=== PATIENT | female | born 1945 | race Caucasian/White ===

== ENCOUNTER 2019-11-08 21:10 | Inpatient (IN) | payer MEDICARE ==
[~2019-11-08] VITALS: Ht 170.2 cm; Wt 68.0 kg
[2019-11-08 23:20] VITALS: BP 113/77
--- NOTE | 2019-11-08 23:20 | NUR ---
SANDY,DELL Casanova a 74 year old F admitted via stretcher from the ADMITTING as a voluntary admission. Arrived on unit at 2320. ALLERGIES: NKA. Vital signs are: 98.5-100-18 113/77. The client's POA,Mariano Matthews,gave verbal consent for the following forms with stated understanding: Authorization For The Release of Medical Information,Consent to Voluntary Admission and Hospitalization, Consent and Release Forms/Receipt of Rights, Acknowledgement of Advance Directive Information, Behavioral Health Consent Form. Admitted under the services of Dr. CLARA GARCESMARYCHUY. A search was conducted and hazardous articles were removed. Client was oriented to the unit. JOHANA ARREAGA
--- NOTE | 2019-11-09 01:30 | NUR ---
Dr. Reich was called and notified of admission to floor and patient not having any wounds. No new orders were received. Dr. Reich said to place medical management under Dr. Kent's services.
[2019-11-09] MEDS ORDERED: MIRTAZAPINE15 M2 PO (01:59)
[2019-11-09] MEDS ORDERED: COGENTIN0.5 MG PO (02:01)
[2019-11-09] MEDS ORDERED: LAMICTAL100 MG PO (02:02)
[2019-11-09] MEDS ORDERED: PRAVACHOL20 MG PO (02:02)
[2019-11-09] MEDS ORDERED: CALAN SR120 MG PO (02:04)
[2019-11-09] MEDS ORDERED: NAMENDA10 MG PO (02:04)
[2019-11-09] MEDS ORDERED: ZESTORETIC 10-1 EACH PO (02:05)
[2019-11-09] MEDS ORDERED: DONEPEZIL HYDROC5 MG PO (02:05)
[2019-11-09] MEDS ORDERED: RISPERIDONE1 MG PO (02:05)
--- NOTE | 2019-11-09 03:45 | NUR ---
Patient pacing,tearful,attempting to write on wall in room with her pointer finger,having non-sensical rambling speech noted. Attempted to redirect back to bed but patient unable to sit still. Continues to pace. All non-pharmacological interventions unsuccessful. Patient requested "could I have something to calm my nerves,please." Will plan to given Ativan as per request of patient.
--- NOTE | 2019-11-09 04:09 | NUR ---
Medicated with Ativan po prn for increased anxiety/agitation as per doctor's order and request of patient. Will monitor patient's mood/behavior.
--- NOTE | 2019-11-09 05:32 | NUR ---
Pt restless with repeatative behaviors noted, pacing, obsession with water noted. Asking for multiple cups stating she is thirsty, once given cup she will take 1-2 sips and then request another glass. She continues to attempt to go to sink to turn it on and off. Flushing toilets over and over again. Pt rambles with speech pattern. Pt rubbing temples with hands, frustrated with word finding. continue to provide comfort and redirection.
--- NOTE | 2019-11-09 05:48 | NUR ---
Patient slept approx. 0.5 hours throughout shift and was up pacing and very restless. Q 15 minute safety checks continued and maintained.
[2019-11-09 06:50] LABS: ALKALINE PHOSPHATASE 57 U/L (45-117); BUN 18 mg/dl (7-24); CHLORIDE 110 mmol/L (98-107); CHOLESTEROL 168 mg/dL (<200); CREATININE 0.97 mg/dL (0.55-1.02); HDL CHOLESTEROL 53 mg/dl (40-60); LDL CHOLESTEROL 73 mg/dL (9-159); SGOT/AST 35 IU/L (3-35); SGPT/ALT 44 U/L (12-78); SODIUM 141 mmol/L (136-145); TOTAL PROTEIN 7.1 gm/dL (6.4-8.2); TRIGLYCERIDES 209 mg/dl (<150); VLDL CHOLESTEROL 42 mg/dL (6-40)
[2019-11-09 06:54] LABS: BASO % 0.4 % (0.0-1.0); EOS # 0.2 10*3/uL (0.0-0.4); EOS % 1.8 % (1.0-4.0); HEMATOCRIT 41.4 % (37.0-47.0); HEMOGLOBIN 13.8 g/dl (12.0-16.0); LYMPH # 2.1 10*3/uL (1.3-4.4); LYMPH % 22.1 % (27.0-41.0); MEAN CELL VOLUME 91.2 fl (81.0-99.0); MEAN CORPUSCULAR HGB 30.4 pg (27.0-31.0); MEAN CORPUSCULAR HGB CONC 33.3 g/dl (33.0-37.0); MEAN PLATELET VOLUME 9.9 fl (9.6-12.3); MONO % 10.4 % (3.0-9.0); NEUT # 6.1 10*3/uL (2.3-7.9); PLATELET COUNT AUTOMATED 297 10*3/uL (130-400); RED BLOOD COUNT 4.54 10*6/uL (4.10-5.10); RED CELL DISTRI WIDTH 13.8 % (0-14.5); WHITE BLOOD COUNT 9.3 10*3/uL (4.8-10.8)
--- NOTE | 2019-11-09 07:03 | NUR ---
Medicated with Tylenol po prn for c/o hip pain. Will monitor effectiveness.
[2019-11-09 07:32] VITALS: BP 117/58
--- NOTE | 2019-11-09 08:30 | NUR ---
P: INCREASED PACING, WANDERING, BIZARRE BEHAVIOR DURING BREAKFAST. PATIENT TOOK BREAKFAST FOOD OFF TRAY AND PLACED EACH ITEM ON THE TABLE, SCATTERED. VIOCED TANGENTILE THOUGHTS WITH FLIGHT OF IDEAS. NON SENSICAL FRAGMENTED STATEMENTS WH INTERACTING. PATIENT ABLE TO RESPOND TO SIMPLE QUESTIONS ONLY. I: ONE ON ONE, REDIRECTION, REORIENTATION, ACTIVITIES PROVIDED R: INEFFECTIVE. PATIENT IS ALERT TO PERSON WITH CONFUSION; RECALLED BEING IN [facility] AND October. LONG/SHORT TERM MEMORY DEFICITS. DENIES ANY HALLUCINATIONS, DELUSIONS, HI/SI OR PAIN. MOOD IS ANXIOUS, HOPELESS/HELPLESS. PATIENT HEARS OTHERS CONVERSATION, JUMPS TO THE SUBJECT/TOPIC AND CONFABULATES. MEDICATION COMPLAINT. Q 15 MINUTE SAFETY CHECKS MAINTAINED. ONE PERSON ASSIST WITH (VERBAL CUEING AND SIMPLE DIRECTION) ACTIVITIES OF DAILY LIVING, CONTINENT OF BOWEL AND BLADDER. SET UP FOR MEALS, INTAKE VARY. P: CONTINUE TO MOOD, INCREASED CONFUSION, APPETITE AND SLEEPING PATTERN. PROVIDE ONE ON ONE, REDIRECTION/ORIENTATION, ACTIVITIES NEEDED.
--- NOTE | 2019-11-09 08:30 | NUR ---
TREATMENT PLAN MEETING WAS HELD WITH DR. ELIZABETH, GURPREET LOWE RN, WAVE SOLDER OFFBEARER-S AND TATTOO DESIGNER. PLAN FOR DISCHARGE NEXT WEEK. PT. WILL RETURN HOME.
--- NOTE | 2019-11-09 08:37 | NUR ---
Patient pacing t/o unit. Respirations easy and regular. Vital signs stable. No overt distress. Jannet Collier CNP, made aware of medical medications needing reconciled. states "ok". YARY ABREU
--- NOTE | 2019-11-09 11:58 | NUR ---
Patient is pleasant with this clinical writer but visibly anxious. Pt is nonsensical in speech and is voicing flight of ideas. Pt will hear a word spoken by another and use that word as a focus for pt's statements. This clinical writer spoke with pt's Mariano and obtained additional pt information.
[2019-11-09 20:00] VITALS: BP 112/60
--- NOTE | 2019-11-09 21:11 | NUR ---
Patient alert to person only. Mood anxious. Patient pacing in room. Rambling nonsensical speech noted. Patient having trouble with word finding and saying fragmented sentences. Patient having auditory and visual hallucinations. Patient saying " I know I need to shut up because he just told me to shut up". When nurse asked patient who told her to shut up,patient said "he did" and pointed beside her. No one else in room except patient and this nurse. Patient compliant with HS medications without any difficulty. Patient continuously flushing toilet and going to door in room and slamming door shut. Redirected patient to not continuously flushing toilet and slamming door. Patient said "I know and I won't do it. I am not psychotic I just want someone to listen to me. Can you do that?" This nurse asked patient to tell this nurse what she wanted to talk about. Patient rubbing her temples and was having trouble finding words. Redirected and reoriented patient back to room and patient sitting on bed. Provided 1:1 for emotional support. Plan to continue to encourage medication compliance. Also continue to provide emotional support and to continue to redirect/reorient when needed/appropriate. Will continue to monitor behaviors/moods. Q 15 minute safety checks continued and maintained. See [facility] flowsheet for further documentation.
--- NOTE | 2019-11-09 21:42 | NUR ---
Patient continues to pace in room,roaming out in hallway,attempting to go in other rooms,and becoming more hyperverbal. Redirection unsuccessful. All non-pharmacological interventions unsuccessful. Patient requested "can I have something to calm me,please". Medicated with Ativan po prn for increased agitation/anxiety as per doctor's orders and at request of patient. Will continue to monitor moods/behaviors.
--- NOTE | 2019-11-09 23:17 | NUR ---
Patient resting quietly in bed with eyes closed and snoring. Ativan effective. Will continue to monitor moods/behaviors.
--- NOTE | 2019-11-10 00:16 | NUR ---
24 HR chart check completed.
--- NOTE | 2019-11-10 05:41 | NUR ---
Patient slept approx. 6.5 hours throughout shift. Q 15 minute safety checks continued and maintained.
[2019-11-10 07:13] VITALS: BP 135/65
--- NOTE | 2019-11-10 08:24 | NUR ---
Patient quiet in room with no c/o discomfort. Respirations easy and regular. Vital signs stable. No overt distress. YARY ABREU
--- NOTE | 2019-11-10 09:51 | NUR ---
Treatment team held with Mial Galloway COMMERCIAL ILLUSTRATOR, RN, and CHARLIE. Discharge plan is for pt to return home with her next week. Follow-up will be scheduled with Dr Chacko.
--- NOTE | 2019-11-10 10:08 | NUR ---
ELLIOTT HARO CNP ON UNIT TO ASSESS PATIENT.
--- NOTE | 2019-11-10 11:41 | NUR ---
Patient is fixated on counting and becomes irritated if her counting is interrupted. Patients counting includes sequential as well as repetitive numbers at times. Pt's speech in primarily non-sensical. This adjusto writer operator spoke with pt's Josh (Mariano) who stated that pt has not had this counting behavior before.
--- NOTE | 2019-11-10 12:27 | NUR ---
PRN ATIVAN EFFECTIVE. CALM DEMEANOR WHILE EATING LUNCH AND CONTINUING TO ENCOURAGE TO EAT MEAL.
--- NOTE | 2019-11-10 13:37 | NUR ---
P: INCREASED CONFUSION, WORD SALAD AND WORD FINDING DIFFICULTY; REPEATIVE WITH COUNTING NUMBERS UP TO 10. RAISING VOICE WITH ANGER TRYING TO GET OTHERS TO LISTEN, UNABLE TO REDIRECT. AUDITORY HALLUCINATIONS VOICED. SEEING DAUGHTER "DU; 1,2,3,4, GOING TO MISS THE BUS; DU TOLD ME..." INTRUSIVE WITH OTHER PATIENT. I:ONE ON ONE, REDIRECTION AND REORIENTATION PROVIDED, CHANGE OF ENVIRONMENT, OFFERED ACTIVITIES. R: INEFFECTIVE. PATIENT IS ALERT TO SELF WITH CONFUSION. ABLE TO VOICE NEEDS AT TIMES. LONG/SHORT TERM MEMORY DEFICITS. MOOD IS IRRITABLE, ANXIOUS; INTRUSIVE, RAISING VOICE; NOT ABLE TO FOLLOW DIRECTION. NO VOICED STATEMENTS OF HI/SI OR PAIN. RESPONDING TO INTERNAL STIMULI. MEDICAITON COMPLAINT. Q 15 MINUTE SAFETY CHECKS MAINATINED. 1 PERSON ASSIST WITH ACTIVITIES OF DIALY LIVING, CONTINENT OF BOWEL AND BLADDER. ASSIST WTIH MEALS AND MUCH ENCOURAGEMENT AND ASSIST WITH TO EAT. INTERACTIVE WITH NURSE WITH MUCH VERBAL CUEING. P: PRN ATIVAN 1MG PO GIVEN FOR INCREASED RESTLESSNESS.
[2019-11-10 13:51] LABS: VITAMIN D, 25-HYDROXY 40.5 ng/mL (30-100)
--- NOTE | 2019-11-10 16:20 | NUR ---
Shift chart check completed.
--- NOTE | 2019-11-10 17:11 | NUR ---
PATIENT COMPLAINING OF HAVING A UPSET STOMACH. SALTINE CRACKERS AND GINGERALE PROVIDED. PRN MAALOX 30ML GIVEN PO AT THIS TIME.
--- NOTE | 2019-11-10 17:24 | NUR ---
PATIENT COMPLAINING OF BACK PAIN 05/21. PRN TYLENOL 650MG GIVEN PO AT THIS TIME.
--- NOTE | 2019-11-10 18:30 | NUR ---
NO FURTHER COMPLAINTS, IN DINING ROOM SITTING IN CHAIR. PRN MAALOX AND TYLENOL EFFECTIVE.
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
[2019-11-10 20:00] VITALS: BP 129/63
--- NOTE | 2019-11-10 21:24 | NUR ---
Patient is now sitting still for longer periods and continues to fold wash cloths and towels. Continuous counting has lessened slightly. Will continue to monitor moods/behaviors.
--- NOTE | 2019-11-10 21:51 | NUR ---
Patient alert to person only. Mood anxious. Patient pacing in room but sitting down for longer periods of time now. Rambling nonsensical speech noted. Patient having trouble with word finding and saying fragmented sentences. Patient having auditory and visual hallucinations. Patient looking to the empty chair next to patient and saying "Sejal, tell her". When nurse asked patient tell the nurse what. Patient said "that is what happens when you or anybody else doesn't listen to me". Patient compliant with HS medications without any difficulty. Patient rubbing her temples and was having trouble finding words. Provided 1:1 for emotional support. Plan to continue to encourage medication compliance. Also continue to provide emotional support and to continue to redirect/reorient when needed/appropriate. Will continue to monitor behaviors/moods. Q 15 minute safety checks continued and maintained. See [facility] flowsheet for further documentation.
[2019-11-10 22:51] LABS: BILIRUBIN NEGATIVE (NEGATIVE); BLOOD NEGATIVE (NEGATIVE); CLARITY SL CLOUDY (CLEAR); COLOR YELLOW (YELLOW); GLUCOSE NEGATIVE (NEGATIVE); KETONE TRACE (NEGATIVE); NITRITE NEGATIVE (NEGATIVE); UROBILINOGEN 0.2 E.U./dl (0.2-1.0)
[2019-11-10 22:52] LABS: LEUKO ESTERASE 1+ (NEGATIVE)
[2019-11-10 22:59] LABS: BACTERIA 3+; EPITHELIAL CELLS TNTC; RBC 31-40 rbc/hpf (0-2); WBC TNTC wbc/hpf (0-5)
--- NOTE | 2019-11-11 | NUR ---
Patient repeatedly setting off bed alarm and pacing in room and hallway. Attempted to redirect patient multiple times but unsuccessful. Placed patient in gerichair for 1:1 for safety. Patient in front of nurses' station for close observation. Will continue to monitor moods/behaviors.
--- NOTE | 2019-11-11 00:04 | NUR ---
Called and notified Dr. Pritchard regarding urinanalysis results. No new orders received at this time.
--- NOTE | 2019-11-11 00:07 | NUR ---
24 HR chart check completed.
--- NOTE | 2019-11-11 06:03 | NUR ---
Patient slept approx. 1 hour and was very restless throughout shift. Q 15 minute safety check continued and maintained.
--- NOTE | 2019-11-11 06:35 | NUR ---
Attempted to assist patient out of gerichair in order to assist with toileting. Patient said " I will go to the bathroom later, I want to just sit in this chair for now". This nurse told patient that she really should try to go to the bathroom because the the last time she went was before bedtime. And also she would get to have time to freshen up and get rid of the odor before breakfast. Patient said "too bad,hold your nose if you can't handle the smell". Patient remains seated in gerichair with body alarm on and across from nurses' desk where she can be closely observed for safety. Will continue to monitor moods/behaviors.
[2019-11-11 07:36] VITALS: BP 122/62
--- NOTE | 2019-11-11 07:51 | NUR ---
Patient feeding self breakfast at this time. Respirations easy and regular. Vital signs stable. No overt distress. Update given to Lashell PHINP-. ALYSSA BELLO
--- NOTE | 2019-11-11 08:30 | NUR ---
TREATMENT PLAN MEETING WAS HELD WITH GURPREET LOWE RN, FURNITURE SALES CONSULTANT-S AND GEOPHYSICAL E LOGGER. PLAN FOR DISCHARGE NEXT WEEK. PT. WILL RETURN HOME WITH HER .
--- NOTE | 2019-11-11 09:24 | NUR ---
Nina HARVESTING SUPERVISOR updated re: urinalysis result and pt reports occasional dysuria.
--- NOTE | 2019-11-11 11:30 | NUR ---
This RN and second RN attempted several times to engage pt in morning group activity, pt restless, moving from chair to chair in the dining room, frequently repeated random numbers, talking to unseen others, speech nonsensical at times. Pt eventually went and laid down in bed.
--- NOTE | 2019-11-11 12:30 | NUR ---
This RN to pt's room, advised pt lunch was on unit, pt declined to come out for lunch at this time, pt states "I'll eat later". Pt's lunch tray saved for when pt is ready to eat. Pt rested quielty with eyes closed for approx 30 minutes. Pt is now awake but remains lying in bed per pt preference. q15 min monitoring continues.
--- NOTE | 2019-11-11 13:10 | NUR ---
Patient restless this AM moving about in activity room. Unable to engage pt in group activity. Pt did tap this verse writer on the shoulder two different times and then pt stated. "One." Pt's sentences are nonsensical. She was speaking often of Nora (her daughter's name). Pt displayed slight irritation briefly at times.
--- NOTE | 2019-11-11 15:50 | NUR ---
P- Confusion, restlessness, auditory/visual/tactile hallucinations, counting frequently, nonsensical speech, labile mood, poor po intake for breakfast and lunch I- Orientation, mood and behaviors assessed. Assessed pt for s/s hallucinations, paranoia and/or delusions. Medications administered as per physician's orders. Assistance with ADL care provided as needed. Encouraged pt to attend and participate in uv milieu groups and activities. R- Pt is alert and oriented to person, place, year and president this AM. Confusion noted. Resps easy and even on room air. Mood labile, affect varying t/o shift. This AM pt appeared overwhelmingly depressed and tearful, sobbing, stating she believed her had and she needed to get to the home. Reality presentation given and emotional support provided. Offered to call pt's so they could talk to which pt declined. Pt noted at times t/o shift with increased anxiety and irritable at times toward female peer. Speech is soft, nonsensical at times. Speech is repetitive at times, pt counting "1,2,3,4" frequently. This RN and pt were sitting in quiet room talking when pt suddenly pointed across the room and began pointing and counting "1, 2, 3, 4" as if she were counting something across the room. This RN asked pt what she saw that she was counting. Pt became agitated and stated "can't you see that 'unintelligible word' over there?" This RN asked pt to repeat what she had said as to better understand her. Pt again repeated the same unintelligible word and then states "No, the couch". Assured pt this RN could also see the couch. Pt also frequently asking outloud "Can you give me a 7? Can anyone give me a number 7?" Pt noted to be responding to apparent auditory, visual and tactile internal stimuli. Pt observed carrying on conversations with unseen others, pt seems to frequently be interacting with daughter Sejal. Pt also noted to be gesturing into the air, knocking on chairs, the doorways and george as well as 'writing' with her fingertips on the george and her pant legs. Pt observed 'writing' out her daughter's name "Sejal" and then crossing it out as well as making hash atkins. Pt refused lunch despite multiple attempts and encouragement. Pt states "I need a wheelchair, I have a bad back". Offered pt Tylenol, encouraged pt to sit and rest on couch, chair or bed for comfort/rest period. Pt states "I can't take Tylenol. My psychiatrist told me not to". Pt denies SI/HI, intent or plan. Medication compliant with education and encouragement provided. Pt remains restless throughout the shift. No aggressive behaviors displayed. Pt has refused to shower or allow full skin assessment by this RN this shift despite encouragement/education provided. Frequent PO fluids offered/encouraged. Pt taking PO fluids well with encouragement. P- Plan to continue current treatment, continue to monitor mood and behaviors, provide appropriate reorientation, redirection and 1:1 as needed. Continue to encourage medication compliance as well as group attendance and participation.
--- NOTE | 2019-11-11 16:14 | NUR ---
Shift chart check completed.
--- NOTE | 2019-11-11 19:40 | NUR ---
Patient sitting quietly in quiet room with no c/o discomfort. Respirations easy and regular. Vital signs stable. No overt distress. YARY ABREU
[2019-11-11 20:00] VITALS: BP 125/63
--- NOTE | 2019-11-11 20:00 | NUR ---
HALLUCINATING, VISUAL AND AUDITORY. PT IS OVERTLY INTERACTING WITH HER DAUGHTER WHO IS NOT PRESENT ON THE UNIT. RESTLESS. ASSESSED FOR ORIENTATION LEVEL, MOOD AND AFFECT. ASSESSED FOR HALLUCINATIONS AND DELUSIONS. ASSESSED FOR SI, INTENT OR PLAN. ADMINISTERED MEDICATIONS PER ORDER. PRN ROZEREM GIVEN FOR RESTLESSNESS. PT IS ALERT, ORIENTED TO PERSON AND TIME. MOOD IS LABILE, AFFECT IS FLAT. PT INTERACTING WITH DAUGHTER, UNRECEPTIVE TO REALITY PRESENTATION. PT CONTINUES WITH SEQUENCING AND REPETITION OF NUMBERS. DENIES SI, INTENT OR PLAN. MEDICATION COMPLIANT WITHOUT DIFFICULTY. WILL CONTINUE TO ENCOURAGE MEDICATION COMPLIANCE. WILL ENCOURAGE PT TO VERBALIZE INTERNAL THOUGHT PROCESS. WILL ENCOURAGE RESTFUL SLEEP AND INCREASED CONSUMPTION AT MEALS AND SNACKS. Q 15 MIN MONITORING FOR SAFETY.
--- NOTE | 2019-11-11 21:30 | NUR ---
PRN ROZEREM EFFECTIVE AT THIS TIME.
--- NOTE | 2019-11-11 21:37 | NUR ---
The patient has no complaints and is resting comfortably. YARY ABREU
--- NOTE | 2019-11-12 01:18 | NUR ---
The patient has no complaints and is resting quietly. YARY ABREU
--- NOTE | 2019-11-12 06:51 | NUR ---
PT SLEPT 5 HOURS THIS SHIFT.
[2019-11-12 07:22] VITALS: BP 127/62
--- NOTE | 2019-11-12 07:29 | NUR ---
Patient resting quietly with no c/o discomfort. Respirations easy and regular. Vital signs stable. No overt distress. Encouraged pt to come out for breakfast, pt states "no I'm not eating today". This nurse asked why pt didn't want to eat, pt became angry and states "I just don't, now go away". ALYSSA BELLO
--- NOTE | 2019-11-12 08:15 | NUR ---
on unit to see pt at this time.
--- NOTE | 2019-11-12 12:00 | NUR ---
Pt continued to rest quietly in bed throughout the morning, intermittently napping. Pt recieved phone call from , pt spoke to on the phone. At conclusion of phone call lunch trays had arrived on unit, this RN encouraged pt to come out of room and eat some lunch, pt refused and is repeatedly asking for her daughter Sejal. No number for Sejal available. RN phoned and obtained Sejal's number. Pt was able to speak with Sejal on the phone. Sejal relayed to RN that pt's appetite and meal intakes had been poor at home prior to admission as well. Pt tearful regarding missing her family at conclusion of second phone call. This RN spent 1:1 time with pt, emotional support provided, feelings validated. Encouraged pt again to come to lunch. Pt did come out with much encouragement and reasurrance, pt repeatedly states "I can't do it. I can't". Set up assist provided with meal tray, pt began to feed self. Pt is currently slowly feeding self, however, pt is noted to be responding to internal stimuli at this time as pt is observed "talking on the phone" using a small piece of paper and holding it up to her ear as if it were the handheld phone reciever. No acute distress noted. Will cont to monitor.
--- NOTE | 2019-11-12 18:29 | NUR ---
P- CONFUSION, AUDITORY/VISUAL/TACTILE HALLUCINATIONS, LABILE MOOD, POOR PO INTAKES. PT VOICING DELUSIONAL THOUGHTS REGARDING BEING . PREOCCUPIED WITH HER WATER BREAKING AND ASKING "IS THE BABY OK?" I- ORIENTATION, MOOD AND BEHAVIORS ASSESSED. ASSESSED PT FOR SI/HI, INTENT OR PLAN. ASSESSED PT FOR S/S HALLUCINATIONS, PARANOIA AND/OR DELUSIONS. MEDICATIONS ADMINISTERED PER PHYSICIAN'S ORDERS. ASSISTANCE WITH ADL CARE PROVIDED NEEDED. ENCOURAGED PT TO ATTEND AND PARTICIPATE IN [facility]DR[facility] GROUPS AND ACTIVITIES. R- PT IS ALERT AND ORIENTED TO SELF, CONFUSION NOTED. RESPS EASY AND EVEN ON ROOM AIR. MOOD REMAINS LABILE, PT FLUCTUATES QUICKLY FROM CALM AND COOPERATIVE, TO TEARFUL TO IRRITABLE. SPEECH IS SOFT, NONSENSICAL AT TIMES, PT ABLE TO ANSWER SIMPLE QUESTIONS. LESS REPETITIVE SPEECH/NUMBER SEQUENCING NOTED THIS DATE IN COMPARISION TO ASSESSMENT BY THIS RN ON 11/11/2019. PT CONTINUES TO EXHIBIT EVIDENCE OF INTERNAL AUDITORY, VISUAL AND TACTILE STIMULI. PT TALKS AND INTERACTS EXTENSIVELY WITH HER SON AND DAUGHTER DESPITE THEM NOT BEING HERE ON THE UNIT. PT PICKS AND GRABS AT THINGS IN THE AIR WELL KNOCKING AND RUBBING HER HANDS ON THE GIL, TABLES AND DOORWAYS. MED COMPLIANT THIS AM WITHOUT DIFFICULTY. PT ALSO VOICING DELUSIONAL THOUGHTS THIS DATE REGARDING BEING , STATING HER WATER BROKE AND ASKING "IS THE BABY OK?" FREQUENT REDIRECTION AND REALITY PRESENTATION PROVIDED, EFFECTIVE FOR ONLY SHORT PERIODS OF TIME. PT CONTINUES WITH POOR PO INTAKES, REFUSED BREAKFAST AND DINNER, LATE 25% OF LUNCH. FLUIDS OFFERED AND ENCOURAGED T/O SHIFT. PT SHOWERED THIS EVENING BY THIS RN. SKIN INTACT. PINK AND BLANCHABLE TO BUTTOCKS. PT FREQUENTLY ASKING THIS NURSE TO "GO AWAY" BUT WAS OVERALL COMPLIANT WITH HANDS ON CARE, NO AGGRESSIVE BEHAVIORS DISPLAYED. P- PLAN TO CONTINUE CURRENT TREATMENT, CONTINUE TO MONITOR MOOD AND BEHAVIORS, PROVIDE APPROPRIATE REORIENTATION, REDIRECTION AND 1:1 NEEDED. CONTINUE TO ENCOURAGE MEDICATION COMPLIANCE WELL GROUP ATTENDANCE AND PARTICIPATION.
[2019-11-12 19:56] VITALS: BP 131/53
--- NOTE | 2019-11-12 21:03 | NUR ---
P--HALLUCINATIONS, CONFUSION, DISORIENTATION I--ASSISTED WITH TOILETING WITH DIFFICULTY. BRUSHED TEETH, MEDICATED PER DOCTORS ORDERS. DIFFICULTY GETTING CLIENT TO UNDERSTAND REQUESTS. VISUAL HALLUCINATIONS NOTED. ATTEMPTED TO REPOSITION. ENCOURAGED FLUID INTAKE. EASILY DISTRACTED. R- OH ARE YOU MY HUSBANDS MOTHER. DON'T BOTHER WITH ME GO TO SLEEP. WAIT A MINUTE THEN STARTS POINTING AT WALL AND COUNTING. TO TOILET WITH STEP BY STEP INSTRUCTIONS. PULLING ON ALARM CODE WHILE NURSE STANDING THERE. UNABLE TO WIPE IT APPEARS SHE DOESN'T UNDERSTAND. ALLOWED OUTER TEETH TO BE BRUSHED BY RN. TOOK MEDICATIONS CRUSHED WITH BIRD BITES. DRANK 1/2 CONTAINER CHOCOLATE MILK. DRAWING WITH FINGER ON SHEET BEFORE GETTING IN BED. ASKED NURSE TO HELP LEGS THEN SAID NO. POSITIONED IN BED THEN TOLD NURSE TO LET HER MOVE HERSELF AND GO AWAY. COVERED HER AND LEFT ROOM P--MONITOR FOR CHANGES IN MOOD/BEHAVIOR. MONITOR Q15 MINS AND PRN FOR SAFETY. ENCOURAGE FLUIDS. REORIENT TO PLACE AND TIME. MEDICATE PER ORDERS. PROVIDE EMOTIONAL AND PHYSICAL SUPPORT. P-
--- NOTE | 2019-11-12 23:23 | NUR ---
REMAINS AWAKE MOVING SELF AROUND IN BED. TELLS YOU TO GET OUT AND GO TO BED WHEN YOU ENTER ROOM. WILL CONTINUE TO MONITOR
--- NOTE | 2019-11-13 04:19 | NUR ---
24 HR chart check completed.
--- NOTE | 2019-11-13 06:45 | NUR ---
VISUAL HALLUCINATIONS MAJORITY OF NIGHT. CONFUSION AND DISORIENTATION. CONTINUES TO LOOK AHEAD AT UNSEEN OBJECTS, POINTING AND APPEARING TO BE COUNTING. WILL ANSWER QUESTION I AM FINE GO GET SOME REST. SLEPT LESS THAN 2 HOURS
[2019-11-13 08:00] VITALS: BP 96/72
--- NOTE | 2019-11-13 08:51 | NUR ---
ELLIOTT HARO CNP ON UNIT TO ASSESS PATIENT.
[2019-11-13 08:54] VITALS: BP 98/60
--- NOTE | 2019-11-13 09:05 | NUR ---
MANUAL BP 98/60. POOR PO INTAKES, ELLIOTT HARO, VALENTIN NOTIFIED, OKAY TO HOLD VERAPAMIL.
--- NOTE | 2019-11-13 09:13 | NUR ---
TREATMENT PLAN MEETING WAS HELD WITH DR. ELIZABETH, GURPREET LOWE RN AND TRACING LATHE SET UP OPERATOR. PLAN FOR DISCHARGE NEXT WEEK. PT. WILL RETURN HOME WITH HER .
--- NOTE | 2019-11-13 13:56 | NUR ---
P: VISUAL AND TACTILE HALLUCINATION; RUBBING TABLE BACK AND FORTH AND HANDS IN AIR RESPONDING TO INTERNAL STIMULI. POOR APPETITE. I: ONE ON ONE, REDIRECTION/ORIENTATION TO REALITY, ASSIST WITH MEALS. R: PATIENT IS ALERT TO PERSON AND TIME WITH CONFUSION. IMPROVEMENT NOTED. PATIENT ABLE TO RECALL MONTH NOVEMBER 2019, AT HOSPTIAL NO ABLE TO TELL WHICH ONE AND SITUATION. LONG/SHORT TERM MEMORY DEFICITS NOTED. DENIES HI/SI OR PAIN. PATIENT ADMITS TO HAVING HALLUCINATIONS "SOMETIMES" PATIENT RESPONDING TO INTERNAL STIMULI. MEDICAITON COMPLIANT-MEDS CRUSHED IN APPLESAUCE. Q 15 MINUTE SAFETY CHECKS MAINTIANED. 1 PERSON ASSIST WITH ACTIVITIES OF DAILY LIVING, CONTINENT OF BOWEL AND BLADDER. SET UP FOR MEALS WITH ASSIST TO EAT/DRINK. UP IN DINING ROOM LISTENING TO MUSIC. P: CONTINUE TO MONITOR FOR INCREASED CONFUSION, AGGRESSION AND MEAL INTAKES. PROVIDE ONE ON ONE, REDIRECTION/ORIENTAION. ASSIST WITH MEALS.
[2019-11-13 19:42] VITALS: BP 145/69
--- NOTE | 2019-11-13 20:32 | NUR ---
P--CONFUSION I--ASSISTED CLIENT IN EATING. MEDICATIONS PROVIDED. TRIED 1:1 WITHOUT SUCCESS. PM CARE DONE. ASSISTED TO TOILET. DID BETTER TONIGHT THAN LAST NIGHT. POSITION OF COMFORT IN BED. HOB UP. R--ATE 25% OF SNACK WITH MEDICATIONS AND DRANK FULL CUP OF JUICE. WAS PUSHING APPLESAUCE CUP AROUND IN CIRCLES AND ASKED IF SHE COULD STOP WHEN I APPROACHED AND THEN STOPPED. AMBULATED TO BATHROOM TO VOID. ASKED FOR HELP WITH LEGS TO GET INTO BED. KEPT REPEATING KEEP AWAY FROM ME I DON'T WANT YOU TO GET IT. P--MONITOR FOR CHANGES BEHAVIOR//MOOD. PROVIDE EMOTIONAL SUPPORT.
--- NOTE | 2019-11-13 22:30 | NUR ---
24 HR chart check completed.
[2019-11-14 06:07] LABS: BASO # 0.1 10*3/uL (0.0-0.1); BASO % 0.5 % (0.0-1.0); EOS # 0.1 10*3/uL (0.0-0.4); EOS % 0.8 % (1.0-4.0); HEMATOCRIT 34.6 % (37.0-47.0); HEMOGLOBIN 11.6 g/dl (12.0-16.0); LYMPH # 1.6 10*3/uL (1.3-4.4); MEAN CELL VOLUME 93.3 fl (81.0-99.0); MEAN CORPUSCULAR HGB 31.3 pg (27.0-31.0); MEAN CORPUSCULAR HGB CONC 33.5 g/dl (33.0-37.0); MEAN PLATELET VOLUME 9.8 fl (9.6-12.3); MONO % 10.4 % (3.0-9.0); NEUT # 7.1 10*3/uL (2.3-7.9); NEUT % 71.8 % (47.0-73.0); PLATELET COUNT AUTOMATED 236 10*3/uL (130-400); RED BLOOD COUNT 3.71 10*6/uL (4.10-5.10); WHITE BLOOD COUNT 9.9 10*3/uL (4.8-10.8)
[2019-11-14 06:30] LABS: ALBUMIN 3.1 gm/dl (3.1-4.5); BUN 30 mg/dl (7-24); CHLORIDE 109 mmol/L (98-107); CREATININE 0.81 mg/dL (0.55-1.02); PHOSPHOROUS 2.6 mg/dL (2.5-4.9); POTASSIUM 3.7 mmol/L (3.5-5.1); SODIUM 141 mmol/L (136-145)
--- NOTE | 2019-11-14 06:45 | NUR ---
PT SLEPT FROM [id number] & SHE HAD A BRIEF AWAKENING & WAS CONTINENT OF A SMALL BM WITH 1 STAFF ASSIST. RETURNED TO SLEEP @ 0400. HAS SLEPT APPX 6.5 HOURS.
[2019-11-14 07:48] VITALS: BP 143/86
--- NOTE | 2019-11-14 07:53 | NUR ---
Patient eating breakfast in dining room at this time with peers. Respirations easy and regular. Vital signs stable. No overt distress. ALYSSA BELLO-BC on unit to see pt at this time, update given.
--- NOTE | 2019-11-14 10:30 | NUR ---
AM GROUP- GOAL SETTING. Spent time talking with pts in group setting re: setting a goal for the day. Encouraged pt to set short term goal that can be accomplished this date. Pt's goal is to take her medicines and "eat food and drink".
--- NOTE | 2019-11-14 10:43 | NUR ---
ALERT TO PERSON AND TIME. CONFUSION NOTED AT TIMES. STABLE MOOD. NO HALLUCINATIONS OR DELUSIONS NOTED. CALM. INTERACTIVE WITH OTHER PATIENTS. AMBULATORY WITH ASSIST. PT UNSURE OF SELF WHEN STANDING UP HOWEVER PT HAS A STEADY GAIT WHILE AMBULATING. MEDICATION COMPLIANT WITHOUT DIFFICULTY. NO ADVERSE MOODS OR BEHAVIORS NOTED. APPETITIE IS IMPROVED FROM PREVIOUS DAYS. PT IS FEEDING SELF WITH LITTLE PROMPTING. SEE [facility] FLOWSHEET FOR SPECIFIC MONITORING.
--- NOTE | 2019-11-14 15:22 | NUR ---
PM GROUP - STRETCHING/CHAIR YOGA. Pt actively participated in stretching and chair yoga activity. Pt smiling, laughing and interacting appropriately with staff and peers.
[2019-11-14 19:32] VITALS: BP 125/51
--- NOTE | 2019-11-14 21:10 | NUR ---
At 2044 patient was sitting in dining room talking with staff. Stated about another male patient in dining room that they were related. Stated "We share a great grandchild named Duane Webber, he's 12. He plays baseball." patient has been alert and verbal. Pleasant and cooperative. stood and walked with assistance to table and ate her snack. was oriented to task without hallucinations or delusions. Has been pleasant and med compliant.
--- NOTE | 2019-11-14 21:23 | NUR ---
24 HR chart check completed.
--- NOTE | 2019-11-15 05:24 | NUR ---
PATIENT SLEPT 7 HOURS LAST NIGHT.
[2019-11-15 06:14] LABS: BASO % 0.6 % (0.0-1.0); EOS # 0.2 10*3/uL (0.0-0.4); EOS % 3.4 % (1.0-4.0); HEMATOCRIT 34.4 % (37.0-47.0); HEMOGLOBIN 11.4 g/dl (12.0-16.0); LYMPH # 1.9 10*3/uL (1.3-4.4); LYMPH % 29.2 % (27.0-41.0); MEAN CORPUSCULAR HGB 30.5 pg (27.0-31.0); MEAN CORPUSCULAR HGB CONC 33.1 g/dl (33.0-37.0); MEAN PLATELET VOLUME 9.8 fl (9.6-12.3); MONO # 0.8 10*3/uL (0.1-1.0); MONO % 11.9 % (3.0-9.0); NEUT # 3.5 10*3/uL (2.3-7.9); NEUT % 54.7 % (47.0-73.0); PLATELET COUNT AUTOMATED 240 10*3/uL (130-400); RED BLOOD COUNT 3.74 10*6/uL (4.10-5.10); RED CELL DISTRI WIDTH 13.8 % (0-14.5); WHITE BLOOD COUNT 6.4 10*3/uL (4.8-10.8)
[2019-11-15 07:26] VITALS: BP 135/66
--- NOTE | 2019-11-15 07:37 | NUR ---
Patient eating breakfast in dining room with peers, feeding self. Respirations easy and regular. Vital signs stable. No overt distress. ALYSSA BELLO-HERNANDO on unit to see pt at this time, update given.
--- NOTE | 2019-11-15 10:30 | NUR ---
AM GROUP- GOAL SETTING. Spoke with pts in group setting regarding setting goal that can be accomplished this date. Pt states goal for today is to take a nap and keep getting better. Pt requested to lay down at this time until lunch. Pt assisted to bed for rest period.
--- NOTE | 2019-11-15 10:39 | NUR ---
ALERT TO PERSON AND TIME. CONFUSION NOTED AT TIMES. STABLE MOOD. NO HALLUCINATIONS OR DELUSIONS NOTED. CALM. INTERACTIVE WITH OTHER PATIENTS. AMBULATORY WITH ASSIST. PT UNSURE OF SELF WHEN STANDING UP HOWEVER PT HAS A STEADY GAIT WHILE AMBULATING. MEDICATION COMPLIANT WITHOUT DIFFICULTY. NO ADVERSE MOODS OR BEHAVIORS NOTED. SEE [facility] FLOWSHEET FOR SPECIFIC MONITORING.
[2019-11-15 19:34] VITALS: BP 132/70
--- NOTE | 2019-11-15 20:00 | NUR ---
Patient in dining room with no c/o discomfort. Respirations easy and regular. Vital signs stable. No overt distress. YARY ABREU
--- NOTE | 2019-11-16 00:22 | NUR ---
CONFUSION. ST/LT DEFICITS. PT ASSESSED FOR ORIENTATION LEVEL, MOOD AND AFFECT. ASSESSED FOR HALLUCINATIONS AND DELUSIONS. MEDICATIONS ADMINISTERED PER ORDERS. PT IS ORIENTED TO PERSON ONLY. PT ATTEMPTING TO READ VARIOUS SIGNAGE TO APPROPRIATELY STATE TIME AND PLACE. PT WAS ABLE TO READ TODAY'S DATE OFF OF BOARD AND THEN LAUGHS AND STATES "OH, I KNEW IT. I JUST COULDN'T THINK". PT'S MOOD IS STABLE, AFFECT IS APPROPRIATE. PT STATES SHE IS NOT SAD OR DEPRESSED, STATING "I'M A LOT BETTER THAN I WAS. TODAY I FEEL GOOD". PT DENIES HALLUCINATIONS AND DELUSIONS, NO OVERT S/S OF ATTENDING TO INTERNAL STIMULI NOTED. PT IS MEDICATION COMPLIANT WITHOUT DIFFICULTY. WILL CONTINUE TO REORIENT APPROPRIATE. WILL ENCOURAGE MEDICATION COMPLIANCE. Q 15 MIN MONITORING PER POLICY FOR SAFETY.
--- NOTE | 2019-11-16 07:20 | NUR ---
PT SLEPT 6 HOURS T/O SHIFT.
[2019-11-16 08:00] VITALS: BP 130/56
--- NOTE | 2019-11-16 09:10 | NUR ---
ELLIOTT HARO CNP ON UNIT TO ASSESS PATIENT.
--- NOTE | 2019-11-16 09:15 | NUR ---
ELLIOTT HARO MAMMOGRAPHY TECHNICIAN ON UNIT TO ASSESS PT, UPDATE PROVIDED.
--- NOTE | 2019-11-16 10:51 | NUR ---
PATIENT COMPLAINED OF BACK PAIN, RATING 10/10. PRN TYLENOL 650MG PO GIVEN AT THIS TIME.
--- NOTE | 2019-11-16 11:51 | NUR ---
NO FURTHER COMPLAINTS OF PAIN. PRN TYLENOL EFFECTIVE.
--- NOTE | 2019-11-16 15:24 | NUR ---
Shift chart check completed.
--- NOTE | 2019-11-16 18:42 | NUR ---
P: ISOLATIVE AND IRRITABLE AT TIMES, TRYING TO COMMUNICATE NEEDS. I: ONE ON ONE, REDIRECTION, ENCOURAGE PATIENT TO EAT MEALS AND PARTICIPATE IN GROUP SESSION. R: EFFECTIVE. PATIENT IS ALERT TO PERSON, PLACE, YEAR AND SITUATION WITH INTERMITTANT CONFUSION. MOOD IS IRRITATBLE AND DEPRESSED. DENIES ANY HALLUCINATIONS, DELUSIONS, HI/SI OR PAIN. MEDICATION COMPLAINT. Q 15 MINUTE SAFETY CHECKS MAINTAINED. 1 PERSON ASSIST WITH ACTIVITIES OF DAILY LIVING, INCONTINENT OF BOWEL AND BLADDER. SET UP FOR MEALS, INTAKES ARE IMPROVING WITH ENCOURAGEMENT. P: MONITOR FOR HALLUCINATIONS, DELUSIONS, MEAL INTAKES, SLEEPING PATTERNS AND GROUP PARTICIPATION. PROVIDE ONE ON ONE, REDIRECTION AND ORIENTATION NEEDED. CONTINUE TO ENCOURAGE MEAL INTAKES AND GROUP PARTICIPATION.
[2019-11-16 19:41] VITALS: BP 139/96
--- NOTE | 2019-11-17 00:26 | NUR ---
P-CONFUSED, ANXIOUS, INTRUSIVE/DISRUPTIVE, RESTLESS. I-ASSESS ORIENTATION, MOOD, AND BEHAVIOR. PROVIDED 1:1 WITH THERAPEUTIC INTERVENTIONS. REORIENT AND PRESENT REALITY. PROVIDED LOW STIMULI ENVIRONMENT TO HELP CALM. ENCOURAGE MEDICATION COMPLIANCE AND EDUCATE. MONITOR SLEEP. R-PT ALERT AND ORIENTED TO PERSON AND PLACE, CONFUSED. PT RESTLESS SINCE BEGINNING OF SHIFT STATING "I'VE BEEN HERE SINCE November, IT IS TIME FOR ME TO GO, ALL THE BEDS ARE EMPTY, SAIRA GOT TO GO HOME SO SHOULD I". PT INTRUSIVE AND PREOCCUPIED WITH THE CARE OF OTHER PEERS, ALSO OBSERVED TO HAVE SOMATIC COMPLAINTS THAT COINCIDE WITH THE COMPLAINTS OF THOSE SAME PEERS. PT REQUIRES FREQUENT REDIRECTION AND ORIENTATION THROUGHOUT SHIFT. PT REMOVED FROM DINING ROOM TO HER ROOM TO HELP CALM WITH A POSITIVE EFFECT. PT DENIES SI/HI, HALLUCINATIONS, OR PAIN. MEDICATION COMPLIANT WITHOUT DIFFICULTY, UNABLE TO EDUCATE DUE TO COGNITION. PT CURRENTLY LAYING DOWN, EYES OPEN, RESPIRATIONS EASY AND REGULAR, NO SIGNS OR SYMPTOMS OF DISTRESS NOTED. P-CONTINUE TO MONITOR MOOD AND BEHAVIORS. MAINTAIN Q 15 MIN CHECKS AND PRN FOR SAFETY.
--- NOTE | 2019-11-17 04:30 | NUR ---
24 HOUR CHART CHECK COMPLETED.
--- NOTE | 2019-11-17 06:06 | NUR ---
PATIENT OBSERVED ON Q 15 MIN CHECKS TO HAVE SLEPT ZERO HOURS THROUGHOUT THE NIGHT, WHEN ASKED WHY SHE COULDNT SLEEP PT STATED "BECAUSE IM WAITING FOR THE WORLD TO GO ROUND, JUST IGNORE ME", UNABLE TO REDIRECT. NO COMPLAINTS NOTED. NO SIGNS OR SYMPTOMS OF DISTRESS.
[2019-11-17 08:00] VITALS: BP 132/69
--- NOTE | 2019-11-17 08:30 | NUR ---
Treatment Plan meeting was held with Dr. Barakat, GURPREET Zaragoza RN, AUTOMOTIVE PAINTER HELPER-S and Director Of Accreditation. Plan for discharge Saturday. Pt. will return home with Spouse.
[2019-11-17 10:35] VITALS: BP 113/75
--- NOTE | 2019-11-17 11:41 | NUR ---
DAILY,DELL ponce 74 year old F admitted via stretcher from the ADMITTING as a voluntary admission BY LEGAL GUARDIAN. Arrived on unit at 1035. ALLERGIES: RISPERDONE. Vital signs are: [id number] 113/75. The client signed the following forms with stated understanding: Authorization For The Release of Medical Information, Clothing List, Consent to Voluntary Admission and Hospitalization, Consent and Release Forms/Receipt of Rights, Acknowledgement of Advance Directive Information, Behavioral Health Consent Form, and Informed Consent of Medications. Admitted under the services of Dr. CLARA GARCES,[facility]. A search was conducted and hazardous articles were removed. Client was oriented to the unit. RODRÍGUEZ DOBSON
--- NOTE | 2019-11-17 12:21 | NUR ---
Met with pt after pt finished her lunch. Pt wanted to make sure that this commercial loan underwriter saw that pt ate most of her lunch. Pt stated, "They doubt my every move. See you can prove that it is true now." Attempted to engage pt in further conversation but pt stated that she only wanted to call her . Pt spoke to her briefly on the phone. Afterward, pt asked this commercial loan underwriter about pt needing bloodwork. Pt then stated that she would not be able to discharge to home until she had bloodwork done for the virus.
--- NOTE | 2019-11-17 15:57 | NUR ---
Shift chart check completed.
--- NOTE | 2019-11-17 17:24 | NUR ---
P: ISOLATIVE TO ROOM AND TELLS NURSE "I CAN'T WALK" I: ONE ON ONE, REDIRECTION AND ORIENTATION, AND MUCH ENCOURAGEMENT TO ASSIST WITH ACTIVITIES OF DAILY LIVING. R: EFFECTIVE. PATIENT IS ALERT TO PERSON, PLACE, TIME AND SIUTAITON WITH INTERMITTANT CONFUSION. MOOD IS DEPRESSED WITH FLAT AFFECT AND ANXIOUS AT TIMES. DENIES ANY HALLUCINATIONS, DELUSIONS, HI/SI OR PAIN. MEDICAITON COMPLAINT, Q15 MINUTE SAFETY CHECKS MAINTAINED. 1 PERSON ASSIST-VERBAL CUEING WITH ACTIVITIES OF DAILY LIVING, CONTINENT OF BOWEL AND BLADDER. SET UP FOR MEALS, INTAKE ARE IMPROVING. PROVIDED EACH ITEM OF FOOD SEPARATELY AND PATIENT CONSUMED 100% OF DINNER. AMBULATES WITH STEADY GAIT WITH STAND BY ASSIST. P: CONTINUE TO MONITOR INCREASED CONFUSION, MEAL INTAKES AND SLEEPING PATTERN. PROVIDE ONE ON ONE, REDIRECTIN NEEDED.
[2019-11-17 20:00] VITALS: BP 126/64
--- NOTE | 2019-11-17 23:44 | NUR ---
NO ADVERSE BEHAVIORS NOTED. PT ALERT AND ORIENTED X3 WITH CONFUSION. PT CALM, COOPERATIVE, AND PLEASANT. PT BRIEFLY CAME DOWN TO DINING ROOM FOR HS SNACK AND TO INTERACT WITH PEERS BEFORE RETURNING BACK TO BED, PT STATED "I DIDNT SLEEP WELL LAST NIGHT SO IM GOING TO GO TO BED EARLY TONIGHT". PT MEDICATION COMPLIANT WITHOUT DIFFICULTY AFTER REVIEW. PT DENIES SI/HI OR HALLUCINATIONS. NO PARANOIA OR DELUSIONS NOTED. PT AMBULATORY WITH A STEADY GAIT, INDEPENDENT IN ADLS WITH PROMPTING, CONTINENT OF BOWEL AND BLADDER. NO PHYSICAL COMPLAINTS NOTED. PT CURRENTLY LAYING DOWN WITH EYES CLOSED, RESPIRATIONS EASY AND REGULAR, NO SIGNS OR SYMPTOMS OF DISTRESS NOTED. PLAN IS TO CONTINUE TO MONITOR MOODS AND BEHAVIORS. PROVIDE 1:1 WITH THERAPEUTIC INTERVENTIONS. ENCOURAGE MEDICATION COMPLIANCE AND EDUCATE. MAINTAIN Q 15 MIN CHECKS AND PRN FOR SAFETY.
--- NOTE | 2019-11-18 04:50 | NUR ---
TOILET BEING FLUSHED ON MULTIPLE OCCASIONS COMING FROM PATIENTS ROOM. STAFF ENTERED ROOM AND OBSERVED PATIENTS BELONGINGS ON FLOOR AND BED FROM CLOSET IN RANDOM PILES, PT NAKED. WHEN QUESTIONED BY THIS RN, PT NONSENSICAL WITH WORD FINDING DIFFICULTY, STATING "JUST GIVE ME A MINUTE, THIS IS WHAT I HAVE TO DO" AND "IM FLUSHING THE TOILET BECAUSE I HAVE TO PUT THINGS IN ORDER". ALSO WHEN ASKED WHY SHE REMOVED ALL HER CLOTHING SHE STATED "BECAUSE THAT'S WHAT I HAVE TO DO, IT WAS A STRING, FRONTWARDS BACKWARDS". PT UNRECEPTIVE TO REDIRECTION OR REORIENTATION, STATES "YES MA'AM" AND CONTINUES TO MUMBLE NONSENSICAL STATEMENTS, PREOCCUPIED. NO NOTED RESPONDING TO INTERNAL STIMULI AT THIS TIME. PT ASSISTED BACK TO BED WITH ENCOURAGEMENT, WILL CONTINUE TO MONITOR FOR ESCALATING BEHAVIORS. NO SIGNS OR SYMPTOMS OF DISTRESS NOTED.
--- NOTE | 2019-11-18 05:40 | NUR ---
PATIENT CONTINUES TO DISROBE DESPITE MULTIPLE INTERVENTIONS, PT STATES "IM DOING THINGS THE WAY THAT IM SUPPOSED TO, JUST BEAR WITH ME, FRONTWARDS BACKWARDS". PT BROUGHT NEAR NURSES STATION DUE TO LACK OF SAFETY AWARENESS AT THIS TIME.
--- NOTE | 2019-11-18 07:43 | NUR ---
PATIENT OBSERVED ON Q 15 MIN CHECKS TO HAVE SLEPT APPROX 4.5 HOURS UNINTERRUPTED. NO SIGNS OR SYMPTOMS OF DISTRESS NOTED.
[2019-11-18 07:58] VITALS: BP 145/65
--- NOTE | 2019-11-18 08:00 | NUR ---
Patient eating in dining room with no c/o discomfort. Respirations easy and regular. Vital signs stable. No overt distress. YARY ABREU
--- NOTE | 2019-11-18 08:10 | NUR ---
ELLIOTT HARO CNP ON UNIT TO ASSESS UNIT.
--- NOTE | 2019-11-18 08:30 | NUR ---
Treatment Plan meeting was held with Dr. Barakat, GURPREET Zaragoza RN, SURGICAL SUPPLIES STERILIZER-S and Cement Fittings Maker. Plan for discharge next week. Pt. will return home at discharge.
--- NOTE | 2019-11-18 10:39 | NUR ---
Met pt in [place] prior to breakfast this AM. Pt appeared anxious and stated, "Just tell me where I need to go. This way or that way. I need to know where to go." Assisted pt to the activity room. Pt was hesitant and unable to make decision as to where to sit. Directed pt to the table and brought pt her breakfast.
--- NOTE | 2019-11-18 13:02 | NUR ---
Pt has been appropriate with interactions today, stating "i'm taking it one day at a time" and "i feel ok today" when verbally cued to express her mood. Pt states "I am trying to socialize some more today than yesterday so that I can get home soon". Pt received a shower this AM, able to wash self independently with staff supervision. Continent of bowel and bladder. No paranoia or delusions present. No overt s/s of attending to internal stimuli. Pt has been pleasant, cooperative. Medication compliant without difficulty. Pt observed in quiet room reading to self and in group room reading to peers this AM. Will continue to encourage medication compliance, participation in groups, and appropriate interactions with peers for socialization and support. Pt has been educated coater carbon paper Don't Fall, q 15 min monitoring per policy for safety.
--- NOTE | 2019-11-18 15:45 | NUR ---
Shift chart check completed.
[2019-11-18 19:18] VITALS: BP 127/57
--- NOTE | 2019-11-18 23:50 | NUR ---
24 HR chart check completed.
--- NOTE | 2019-11-18 23:52 | NUR ---
PT HAS BEEN PLEASANT THIS EVENING. ALERT & ORIENTED X 4. WAS ON THE PHONE AT THE ONSET OF THE SHIFT & STATED SHE HAD A GOOD CONVERSATION. SHE HAS BEEN CO-OPERATIVE. ATE SNACK. COMPLIANT WITH MEDICATIONS. DID STATE THAT SHE WAS TIRED & SHE FEELS LIKE SHE WILL SLEEP WELL TONIGHT. SHE STATED THAT SHE IS FEELING SO MUCH BETTER & IS HOPING TO GO HOME TOMORROW. INDEPENDENT WITH AMBULATION. NO DELUSIONAL STATEMENTS VOICED. NO SIGNS/SYMPTOMS OF SENSORY DISTURBANCE NOTED.
--- NOTE | 2019-11-19 05:15 | NUR ---
PT HAS SLEPT PAST 2144 WITH 1 BRIEF AWAKENING TO GO TO THE BATHROOM . SLEPT APPX 7.5 HOURS
[2019-11-19 07:36] VITALS: BP 128/64
--- NOTE | 2019-11-19 07:45 | NUR ---
Patient eating breakfast in dining room with peers. Respirations easy and regular. Vital signs stable. No overt distress. ALYSSA BELLO and team on unit to see pt this AM. updated via telephone.
--- NOTE | 2019-11-19 08:27 | NUR ---
Treatment Plan meeting was held with Dr. Barakat RN, SLICE CUTTING MACHINE OPERATOR HELPER-S and Inventory Control Clerk. Plan for discharge Saturday/Saturday wth return home with .
--- NOTE | 2019-11-19 10:10 | NUR ---
Patient sitting in dining area quietly with no c/o discomfort. Respirations easy and regular. Vital signs stable. No overt distress. YARY ABREU
--- NOTE | 2019-11-19 10:39 | NUR ---
PT GIVEN PRN TYLENOL PER ORDER FOR C/O BACK PAIN RATED "6" OUT OF 10.
--- NOTE | 2019-11-19 13:07 | NUR ---
pt states prn tylenol is effective.
[2019-11-19 19:14] VITALS: BP 124/65
--- NOTE | 2019-11-19 21:35 | NUR ---
24 HR chart check completed.
--- NOTE | 2019-11-19 22:57 | NUR ---
PATIENT HAS BEEN PLEASANT AND INTERACTIVE. ALERT TO PERSON, PLACE AND TIME. HAS BEEN MED COMPLIANT. IS FOCUSED ON GETTING BETTER AND GOING HOME. TALKED TO HER ON THE PHONE THEN WENT TO BED. NO SI/HI, NO DELUSIONS OR HALLUCINATIONS NOTED. IS CONCERNED ABOUT THE WELL BEING OF ANOTHER PT THAT LEFT EARIER. WILL CONTINUE TO MONITOR, ENCOURAGE MED COMPLIANCE AND INTERACTION.
--- NOTE | 2019-11-20 06:06 | NUR ---
PATIENT SLEPT OVER 8 HOURS LAST NIGHT.
--- NOTE | 2019-11-20 07:06 | NUR ---
Patient pleasant this AM. She is slow to process and is able to recognize this. Pt will state, "Now give me a minute. Let me think," before answering. Pt was appropriate with her answers and interaction with this policy writer and female peer.
[2019-11-20 07:37] VITALS: BP 132/61
--- NOTE | 2019-11-20 07:38 | NUR ---
Patient eating breakfast in dining room at this time. Respirations easy and regular. Vital signs stable. No overt distress. ALYSSA BELLO
--- NOTE | 2019-11-20 09:51 | NUR ---
Patient anxious this AM. Pt came to the nurse's station and struggled to make her needs known. Pt's breathing was somewhat shallow and slightly rapid. Pt stated numerous times "I'm trying to get the plan. Hold on. Been there, done that." This clinical writer and Oriana Chavez, retail planner, went to pt and offered support. Sat with pt. Pt shared with Oriana that she witnessed another pt's experience last evening and pt is now fearful that pt's is . Phoned pt's Josh and allowed pt to speak to him. Pt calmed slightly but still exhibited anxiety. Pt then moved to activity room to sit with other pts.
--- NOTE | 2019-11-20 10:10 | NUR ---
Pt continues to exhibit anxiety, pt attempting to take slow/deep calming breaths, pt restless, moving from dining room, to quiet room and to nurse's station and back again. This RN attempting 1:1 with pt for calming, attempting distraction techniques, offered food/fluids, reorientation and emotional support provided, pt continues to exhibit anxiety. Pt unable to state what is triggering anxiety at this time. Pt stated "I talked to Josh. I described the fire place to him. He's ok". Pt also repeatedly stating "I just have to get this all into perspective. Been there done that". Pt reading this RN's name tag over and over again out loud, states "UVALDO Swain, behavioral center, long hair, now it's short. That's good. Been there, done that. I'm here because I went bonkers". Vitals assessed and are WNL 97.8-92 pulse, [id number]/70-100% room air. [facility] notified of increased anxiety, unable to calm pt with nonpharmalogical interventions at this time. New order recieved for PRN Vistaril 50mg PO q6h PRN anxiety. good.
--- NOTE | 2019-11-20 10:34 | NUR ---
P: INCREASED ANXIETY THIS AM, INCREASED FORGETFULNESS, TALKING TO SELF, I: PT ATTEMPTING TO USE CALMING TECHNIQUES OF SLOW STEADY BREATHING WITHOUT OUT PROMPTING. PT GIVEN 1:1 WITH DIFFERENT STAFF, ALSO GUIDED TO LOW STIMULATION AREAS TO RELAX. THESE INTERVENTIONS WERE INEFFECTIVE. R: PT CONTINUES TO ATTEMPT TO CALM HERSELF, SHE IS AWARE OF INCREASED ANXIETY, CONTINUES TO MAKE REPEATITIVE STATEMENTS LIKE "LET ME THINK AND i WILL GET THERE". P: cALLED VALENTIN LOWE AND NEW ORDERS RECEIVED AT THIS TIME FOR VISTERAL 50 MG PO. MEDICATION TO BE ADMINISTERED AT THIS TIME
--- NOTE | 2019-11-20 11:21 | NUR ---
Phoned pt's Josh after he had spoken with pt this AM. Discussed pt's current status. Josh agreed that pt is more anxious and confused today. Discussed discharge plan. Josh confirmed that he wants pt to follow-up with Dr Chacko upon discharge.
--- NOTE | 2019-11-20 11:21 | NUR ---
Treatment Plan meeting was held with GURPREET Zaragoza RN, DUCK OPERATOR-S and Store Protection Specialist. Plan for discharge next week with return home with . Pt. to follow with Dr. Chacko in [place] and Dr. Bar in [place].
--- NOTE | 2019-11-20 19:47 | NUR ---
24 HR chart check completed.
[2019-11-20 19:54] VITALS: BP 135/61
--- NOTE | 2019-11-20 22:59 | NUR ---
P-INCREASED ANXIETY, INCREASED MEMORY DEFICITS, REDIRECTION, RESTLESSNESS I-PROVIDE 1:1 FOR VENTILATION OF FEELINGS. ADMINISTER MEDS, MONITOR SLEEP R-PT IS ALERT TO PERSON, PLACE & TIME. SHE IS ANXIOUS & HAS USED ALTERNATE RELAXATION TECHNIQUES WHICH HAS BEEN INEFFECTIVE. SLOW STEADY BREATHING & USE OF GROUP ROOM BY HERSELF. RESTLESS AT TIMES. HAS BEEN REPETITIVE WITH SPEECH STATING "LET ME GET THIS IN ORDER & GET THINGS STRAIGHTENED OUT. I NEED TO GO IN THE RIGHT DIRECTION. ITS 2019 RIGHT?" PREOCCUPIED WITH DATE. READING INSPIRATIONS SAYINGS WRITTEN ON WHITE BOARDS & READING THEM OUT LOUD & STATING, "I DID THAT. YES. OK. COMPLETED". REDIRECTION PROVIDED & SHE STATES OK & UNDERSTANDING BUT NOTED TO HAVE MEMORY DEFICITS WITH MILD THOUGHT BLOCKING AT TIMES. SHE HAS ALSO BEEN CARRYING A SMALL BOOK AROUND ENTITLED OUR DAILY BREAD WITH INSPIRATIONS BIBLE MESSAGES IN IT. SHE STATED, "I FOLLOW THIS EVERY DAY". SHE HAS BEEN TALKING OUTLOUD SOFTLY TO HERSELF REPEATING "2019" HAS BEEN IN HER ROOM UNDRESSING COMPLETELY NAKED IN HER ROOM X 4 & HAS REQUIRED REDIRECTION. COMPLIANT WITH MEDS. PICKED AT SNACK BUT IS VISIBLE PREOCCUPIED WITH HER THOUGHTS. P-CONTINUE TO MONITOR BEHAVIORS
--- NOTE | 2019-11-21 | NUR ---
PT NOTED TO BE RESPONDING TO AUDITORY HALLUCINATIONS. TALKING TO UNSEEN OTHERS. MEDICATED WITH VISTARIL 50 MG @ 2331
--- NOTE | 2019-11-21 04:02 | NUR ---
PT WAS ASSISTED TO A MAY CHAIR & MOVED NEAR NURSES STATION FOR CLOSER OBSERVATION. VISTARIL HAS BEEN INEFFECTIVE. PT HAS REAMAINED AWAKE THE ENTIRE SHIFT. STATED SHE WAS WAITING FOR MARIA INES TO COME & SHE HAS TO LEAVE. VOICED PARANOID STATEMENTS. HAS BEEN QUOTING DIFFERENT BIBLE VERSES & STATED IT IS THE END IF THE WORLD. HAS NOT SLEPT AT ALL THIS SHIFT.
[2019-11-21 07:45] VITALS: BP 118/63
--- NOTE | 2019-11-21 14:03 | NUR ---
P- CONFUSED; PREOCCUPIED ON GOING HOME; ISOLATIVE TO ROOM. I- ASSESS MOOD, ORIENTATION, SI/HI, HALLUCINATIONS, DELUSIONS, OR PAIN. REORIENT AND PROVIDE REASSURANCE. 1:1 THERAPEUTIC INTERACTION WITH EMOTIONAL SUPPORT AND VENTILATION OF FEELINGS PROVIDED. PROVIDE MEDS ON TIME WITH EDUCATION. OFFER RELAXATION AND COPING TECHNIQUES. R- PATIENT ALERT TO PERSON AND PLACE. REORIENTATION EFFECTIVE. MOOD SAD. DENIES SI/HI, HALLUCINATIONS. NO S/S OF INTERACTING WITH INTERNAL STIMULI. NO DELUSIONAL THOUGHT PROCESS NOTED. DENIES PAIN. MED COMPLIANT. PATIENT IS PREOCCUPIED WITH GOING HOME AND APPROACHING STAFF PERIODICALLY ASKING WHEN THE DOCTOR IS GOING TO RELEASE HER. REASSURANCE AND REORIENTATION PROVIDED ON PATIENTS SITUATION WITH 1:1 INTERACTION EFFECTIVE. PATIENT STATED "TOMORROW IS EASTER AND MY IS GOING TO BE ALL ALONE", WHEN OFFERED FOR PATIENT TO CALL PATIENT STATED "NO, I CANT TALK TO HIM RIGHT NOW. IT WILL MAKE ME CRY". EMPATHY AND 1:1 INTERACTION PROVIDED. EATING AND DRINKING ADEQUATELY. REMAINS ISOLATIVE. UTILIZING RELAXATION/COPING TECHNIQUES WHEN REMINDED. P- ASSESS MOOD, ORIENTATION, SI/HI, HALLUCINATIONS, DELUSIONS OR PAIN EVERY SHIFT. REORIENT, REASSURE, AND PROVIDE EMPATHY. 1:1 THERAPEUTIC INTERACTION WITH EMOTIONAL SUPPORT AND VENTILATION OF FEELINGS PROVIDED WHEN NECESSARY. PROVIDE MEDICATIONS ON TIME WITH EDUCATION ON TIME. ENCOURAGE TO UTILIZE RELAXATION AND COPING TECHNIQUES. Q15 MINUTE CHECKS MAINTAINED FOR SAFETY.
--- NOTE | 2019-11-21 14:28 | NUR ---
Shift chart check completed.
[2019-11-21 16:52] LABS: BILIRUBIN NEGATIVE (NEGATIVE); BLOOD NEGATIVE (NEGATIVE); CLARITY CLEAR (CLEAR); COLOR YELLOW (YELLOW); GLUCOSE NEGATIVE (NEGATIVE); KETONE NEGATIVE (NEGATIVE); LEUKO ESTERASE 1+ (NEGATIVE); NITRITE NEGATIVE (NEGATIVE); PH 6.5 (5.0-9.0); SPECIFIC GRAVITY 1.015 (1.005-1.030); UROBILINOGEN 0.2 E.U./dl (0.2-1.0)
[2019-11-21 16:53] LABS: BACTERIA 1+; EPITHELIAL CELLS TNTC
[2019-11-21 20:00] VITALS: BP 135/52
--- NOTE | 2019-11-21 23:53 | NUR ---
P-CONFUSION, PREOCCUPIED I-REDIRECTION WITH 1:1 THERAPEUTIC INTERVERVENTIONS AND PRESENT REALITY. EDUCATE AND ENCOURAGE MEDICATION COMPLIANCE R-PATIENT MEDICATION COMPLIANT AT HS. PATIENT PROVIDED NOURISHMENT AND FLUIDS. PATIENT PREOCCUPIED WITH GOING HOME AND WANTING TO USE THE PHONE TO TALK TO . PATIENT TELEPHONED AT HS. PATIENT RESTLESS AND COMING TO NURSES STATION WANTING THE LIGHTS OUT THEN WANTING THE LIGHTS ON. PATIENT WITH NO HALLUCINATIONS OR DELUSIONS. PATIENT WITH NO SUICIDAL OR HOMICIDAL IDEATIONS. P-CONTINUE TO ENCOURAGE MEDICATION COMPLIANCE, CONTINUE TO PRESENT REALITY, ENCOURAGE GROUP THERAPY WHILE AWAKE
--- NOTE | 2019-11-22 05:58 | NUR ---
PATIENT SLEPT 8 HOURS OF INTERRUPTED SLEEP THROUGHOUT SHIFT. Q 15 MINUTE CHECKS MAINTAINED. 24 HR chart check completed.
--- NOTE | 2019-11-22 07:40 | NUR ---
and team on unit to see pt at this time, update given. [facility]- saw pt this am, update given.
[2019-11-22 08:00] VITALS: BP 118/56
--- NOTE | 2019-11-22 08:12 | NUR ---
Patient in dining room with peers. Respirations easy and regular. Vital signs stable. No overt distress. YARY ABREU
--- NOTE | 2019-11-22 18:45 | NUR ---
PT CALM, PLEASANT, COOPERATIVE WITH CARE. PT APPROPRIATELY INTERACTED WITH PEERS AND STAFF. PT TOOK SHOWER THIS AM. PT ABLE TO SHOWER SELF WITHOUT DIFFICULTY, STAFF SUPERVISION AND ASSIST WITH RINSING HAIR. PT COLORED WITH PEERS AND WATCHED MOVIES. PT TOOK INTERMITTENT REST PERIODS. CONTINENT OF BOWEL AND BLADDER. NO HALLUCINATIONS/DELUSIONS/REPETITIVE ANXIOUS BEHAVIORS NOTED THIS DATE. Q15 MIN MONITORING PER POLICY FOR SAFETY.
[2019-11-22 20:00] VITALS: BP 123/54
--- NOTE | 2019-11-22 22:27 | NUR ---
P-CONFUSION, PREOCCUPIED, RESTLESSS I-REDIRECTION WITH 1:1 THERAPEUTIC INTERVERVENTIONS AND PRESENT REALITY. EDUCATE AND ENCOURAGE MEDICATION COMPLIANCE R-PATIENT MEDICATION COMPLIANT AT . PATIENT RECEIVED PHONE CALLS FROM FAMILY AT . PATIENT PREOCCUPIED WITH GOING HOME. PATIENT RESTLESS AND COMING TO NURSES STATION WANTING REASSURANCE ABOUT WHAT TO DO. THERAPEUTIC COMMUNICATION PROVIDED AND PATIENT EASILY REDIRECTED. PATIENT WITH NO HALLUCINATIONS OR DELUSIONS. PATIENT WITH NO SUICIDAL OR HOMICIDAL IDEATIONS. P-CONTINUE TO ENCOURAGE MEDICATION COMPLIANCE, CONTINUE TO PRESENT REALITY, ENCOURAGE GROUP THERAPY WHILE AWAKE
--- NOTE | 2019-11-23 05:37 | NUR ---
PATIENT SLEPT 7 HOURS OF INTERRUPTED SLEEP THROUGHOUT SHIFT. Q 15 MINUTE CHECKS MAINTAINED. 24 HR chart check completed.
[2019-11-23 07:33] VITALS: BP 120/52
--- NOTE | 2019-11-23 08:39 | NUR ---
Patient in dining area with peers. Respirations easy and regular. Vital signs stable. No overt distress. YARY ABREU
--- NOTE | 2019-11-23 12:48 | NUR ---
DR SELBY ON UNIT TO ASSESS PT, UPDATE PROVIDED.
--- NOTE | 2019-11-23 14:13 | NUR ---
PT HAS BEEN CALM AND COOPERATIVE THIS SHIFT. PLEASANT, INTERACTIVE, AND APPROPRIATE. NO ADVERSE MOODS OR BEHAVIORS NOTED.
--- NOTE | 2019-11-23 14:28 | NUR ---
Spoke with Patient Mariano Via telephone. Notified of planned discharge tommorow. Pt. will pick patient up at 12:30 p.m and transport her via personal vehicle.
--- NOTE | 2019-11-23 15:42 | NUR ---
PM GROUP PT DID NOT ATTEND AFTERNOON GROUP THERAPY. PT WAS IN BED RESTING.
[2019-11-23 19:11] VITALS: BP 117/57
--- NOTE | 2019-11-23 23:30 | NUR ---
PATIENT ALERT AND ORIENTED WITH PERIODS OF CONFUSION. PATIENT WITH NO RESPIRATORY DISTRESS. PATIENT WITH NO HALLUCINATIONS OR DELUSIONS. PATIENT WITH NO SUICIDAL OR HOMICIDAL IDEATIONS. PATIENT'S MOOD IS STABLE. PATIENT STATING TO THIS NURSE " I GET TO GO HOME TOMORROW. MY WILL BE HERE AT 12:30 ON THE DOT'. PATIENT ALSO STATED " I THINK I'VE GOTTEN BETTER FROM WHEN I FIRST GO HERE AND I CAN'T WAIT TO GO HOME. PATIENT MEDICATION COMPLIANT. PATIENT PROVIDED NOURISHMENT AND FLUIDS AT . SEE [id number] FLOW SHEET FOR SPECIFIC MONITORING.
--- NOTE | 2019-11-24 05:52 | NUR ---
PATIENT SLEPT 8 HOURS OF INTERRUPTED SLEEP THROUGHOUT SHIFT. Q 15 MINUTE CHECKS MAINTAINED. 24 HR chart check completed.
[2019-11-24 07:46] VITALS: BP 127/59
--- NOTE | 2019-11-24 07:48 | NUR ---
Patient resting quietly with no c/o discomfort. Respirations easy and regular. Vital signs stable. No overt distress. RODRÍGUEZ DOBSON
[2019-11-24] MEDS ORDERED: MEMANTINE HCL10 MG PO (08:23)
[2019-11-24] MEDS ORDERED: ATARAX,VISTARIL50 MG PO (08:23)
[2019-11-24] MEDS ORDERED: BENZTROPINE MESY1 MG PO (08:23)
[2019-11-24] MEDS ORDERED: ROZEREM8 MG PO (08:23)
[2019-11-24] MEDS ORDERED: MIRTAZAPINE15 M2 PO (08:23)
[2019-11-24] MEDS ORDERED: RIVASTIGMINE TAR6 M1 PO (08:23)
[2019-11-24] MEDS ORDERED: INVEGA9 MG PO (08:23)
--- NOTE | 2019-11-24 08:45 | NUR ---
SPOKE WITH DR MCCLELLAND AND ADVISED OF PT DISCHARGE FOR TODAY, NO FURTHER ISSUES AT THIS TIME.
--- NOTE | 2019-11-24 09:09 | NUR ---
DR SELBY AND TEAM ON UNIT TO ASSESS PT, UPDATE PROVIDED. DR AWARE OF PT PENDING DC FOR TODAY. NO FURTHER ORDERS AT THIS TIME.
--- NOTE | 2019-11-24 09:51 | NUR ---
REVIEWED DISCHARGE INSTRUCTION DISCUSSED WITH PATIENT'S SPOUSE/POA. REVIEW NEW MEDICATION CHANGES AND FOLLOW UP DOCTOR APPTS.
--- NOTE | 2019-11-24 11:26 | NUR ---
Discharge Paperwork Faxed to Dr. Chacko and Dr. Bar.
--- NOTE | 2019-11-24 11:52 | NUR ---
AM GROUP PT DID NOT ATTEND MORNING GROUP THERAPY. PT WAS READYING TO BE DISCHARGED FROM THE UNIT
--- NOTE | 2019-11-24 12:15 | NUR ---
PT DISCHARGED TO HOME VIA HUSBANDS PRIVATE CAR. PT BELONGINGS AND DC PAPER WORK SENT WITH PT. PT ALERT TO PERSON, PLACE AND TIME, INTERMITTENT CONFUSION NOTED AT TIMES. PT MED COMPLIANT WITHOIUT DIFFICULTY. PT CALM, PLEASANT AND INTERACTIVE WITH STAFF AND PEERS. NO HALLUCINATIONS OR DELUSIONS NOTED. PT DENIES ANY SUICIDAL THOUGHTS. PT AMBULATORY THROUGHOUT UNIT, GAIT STEADY. PT CONTINENT OF BOWEL AND BLADDER. NO SKIN ISSUES NOTED AT THIS TIME.
--- NOTE | 2019-11-24 15:09 | NUR ---
Patient discharged today to home with her . Follow-up was scheduled with Dr Chacko. While at [facility], pt's behaviors improved and resolved and pt's mood improved. Pt remained mildly confused at discharge. Pt participated in some of the programming. Pt was pleasant and cooperative at discharge.
== END 2019-11-24 12:10 | disposition home or self-care (01) | DRG 885 ==
LOC: 3N 21:10
PROVIDERS: Counselor Professional; Nurse Practitioner Women's Health; Registered Nurse; ADMIT Psychiatry & Neurology Psychiatry
DX: F31.5 Bipolar disorder, current episode depressed, severe, with psychotic features (principal); I10 Essential (primary) hypertension; G25.71 Drug induced akathisia; E87.8 Other disorders of electrolyte and fluid balance, not elsewhere classified; R00.0 Tachycardia, unspecified; G30.9 Alzheimer's disease, unspecified; F02.80 Dementia in other diseases classified elsewhere, unspecified severity, without behavioral disturbance, psychotic disturbance, mood disturbance, and anxiety; E78.00 Pure hypercholesterolemia, unspecified; R73.9 Hyperglycemia, unspecified; Z79.899 Other long term (current) drug therapy